=== PATIENT | male | born 1985 | race African-American/Black ===

== ENCOUNTER 2022-02-13 04:38 | Emergency (ER) | payer MEDICAID, OTHER ==
[~2022-02-13] VITALS: Ht 188 cm; Wt 79.4 kg
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
[2022-02-13] MEDS ORDERED: HYDROCODONE/APAP 5/325MG TABLET ONE (05:25)
[2022-02-13] MEDS ORDERED: HYDROCODONE/APAP 5/325MG TABLET PO ONE (05:30)
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
[2022-02-13] MEDS ORDERED: AMOX-430 PO (06:27)
[2022-02-13] MEDS ORDERED: IBUP-1955 PO (06:27)
--- NOTE | 2022-02-13 06:34 | NUR ---
at bed side for laceration care
[2022-02-13] MEDS ORDERED: BACI/NEOM/POLY B OINT PKT 1 UDPKT PACKET TP ONE (07:00)
[2022-02-13] MEDS ORDERED: LIDOCAINE 1% INJ 50 ML MDV IJ ONE (07:00)
--- NOTE | 2022-02-13 07:52 | NUR ---
Patient was provided with bus pass. Patient discharged to home in stable condition. Written and verbal after care instructions given. Patient verbalizes understanding of instruction.
[2022-02-13 08:01] VITALS: BP 121/67
== END 2022-02-13 08:01 | disposition home or self-care (01) ==
LOC: ER 04:47
DX: S02.40DA Maxillary fracture, left side, initial encounter for closed fracture (principal); S02.5XXA Fracture of tooth (traumatic), initial encounter for closed fracture; S63.255A Unspecified dislocation of left ring finger, initial encounter; S01.511A Laceration without foreign body of lip, initial encounter; F10.129 Alcohol abuse with intoxication, unspecified; Z79.899 Other long term (current) drug therapy; Y90.9 Presence of alcohol in blood, level not specified
CPT/HCPCS: 12013; 70450; 70486; 72125; 73140; 99284; A6403 ×2